=== PATIENT | female | born 1970 | race Caucasian/White ===

== ENCOUNTER 2021-01-04 17:13 | Emergency (ER) | payer OTHER ==
[2021-01-04 18:33] LABS: HEMOGLOBIN 13.4 gm/dl (12.3-15.3); RED BLOOD COUNT 5.29 M/UL (4.00-5.10); WHITE BLOOD COUNT 6.3 K/UL (4.5-11.0)
[2021-01-04 18:47] LABS: BUN/CREATININE RATIO 9 (0-10)
[2021-01-05] MEDS ORDERED: KEPPRA1000 MG PO (13:30)
== END 2021-01-04 19:30 | disposition home or self-care (01) ==
LOC: ER1 17:13
DX: R56.9 Unspecified convulsions (principal); E78.5 Hyperlipidemia, unspecified; E11.9 Type 2 diabetes mellitus without complications; I10 Essential (primary) hypertension; Z79.84 Long term (current) use of oral hypoglycemic drugs; Z79.899 Other long term (current) drug therapy
CPT/HCPCS: 70450; 80053; 85025; 93005; 99285

== ENCOUNTER 2021-01-05 11:41 | Emergency (ER) | payer OTHER ==
[2021-01-05] MEDS ORDERED: KEPPRA1000 MG PO (13:30)
== END 2021-01-05 17:10 | disposition home or self-care (01) ==
LOC: ER1 11:41
PROVIDERS: Physician Assistant
DX: G40.909 Epilepsy, unspecified, not intractable, without status epilepticus (principal); E11.9 Type 2 diabetes mellitus without complications; I10 Essential (primary) hypertension; K21.9 Gastro-esophageal reflux disease without esophagitis; E03.9 Hypothyroidism, unspecified; F17.200 Nicotine dependence, unspecified, uncomplicated
CPT/HCPCS: 80307; 81001; 96374; 99284; J1953